=== PATIENT | female | born 1980 | race Caucasian/White ===

== ENCOUNTER 2019-09-15 03:56 | Emergency (ER) | payer OTHER ==
[~2019-09-15] VITALS: Ht 154 cm; Wt 69.0 kg
--- NOTE | 2019-09-15 04:15 | ED EENT ---
History of Present Illness General Chief Complaint: Dental Problems/Pain Stated Complaint: DENTAL PAIN Source: patient History of Present Illness Date Seen by Provider: Sep 15, 2019 Time Seen by Provider: 04:15 Initial Comments Patient is a 39 y/o female who comes to the ER today c/o dental pain. Patient states she has been followed this week by her dentist for pain in the right molar area after having had a dental procedure four days earlier. She has been seen twice and given IM rocephin and toradold that did help her pain symptoms. No more power medications at home although she is taking clindamycin. This was started at 150mg tid and increased to 300 mg tid. She comes to the ER this evening, tearful and in pain, stating the medications are not helping for pain. She has no dental f/u until at least Wednesday as the dentist's office is closed. No fever. Allergies and Home Medications Allergies Coded Allergies: amoxicillin (Verified Allergy, Unknown, 09/15/19) metoclopramide (Verified Allergy, Unknown, 09/15/19) Patient Home Medication List Home Medication List Reviewed: Yes Review of Systems Review of Systems Constitutional: no symptoms reported Eyes: No Symptoms Reported Ears: No Symptoms Reported Mouth: see HPI Throat: no symptoms reported Respiratory: no symptoms reported Cardiovascular: no symptoms reported : No All Other Systems Reviewed Negative Unless Noted: No Past Hqlolxy-Ceitng-Odazmh Hx Patient Social History Recent Foreign Travel: No Contact w/Someone Who Travel: No Physical Exam Vital Signs Vital Signs - First Documented 09/15/19 04:08 Temp 36.4 Pulse 87 Resp 16 B/P (MAP) 125/87 (100) Pulse Ox 96 O2 Delivery Room Air Height, Weight, BMI Height: '" Weight: lbs. oz. kg; BMI Method: General Appearance: WD/WN, no apparent distress Mouth/Throat: normal mouth inspection Neck: non-tender, full range of motion Cardiovascular: no edema Respiratory: no respiratory distress Neurologic/Psychiatric: alert, oriented x 3 Skin: normal color Progress/Results/Core Measures Results/Orders My Orders Orders - SOHAIL ESCAMILLA DO Ketorolac Injection (Toradol Injection) (09/15/19 04:30) Ceftriaxone For Im Use (Rocephin For Im (09/15/19 04:30) Lidocaine 1% Inj 20 Ml (Xylocaine 1% Inj (09/15/19 04:30) Vital Signs/I&O 09/15/19 04:08 Temp 36.4 Pulse 87 Resp 16 B/P (MAP) 125/87 (100) Pulse Ox 96 O2 Delivery Room Air Progress Progress Note : Time: 04:28 Progress Note Patient is seen and examined on arrival to her room. She c/o abscess and pain in the right mandibular molar area. Her physical exam is normal. I could not appreciate any gingival inflammation, swelling, redness in the area of concern. She is requesting a different antibiotic or an IV dose of antibiotics. Has previously been given IM rocephin and toradol and is also requesting this. Tonight, I could appreciate no indication to change her antibiotic therapy. I recommended she increase to the maximum dose of clindamycin and will give her some stronger pain medications to use at home until she can follow up with the dentist. She does not have a fever and is drinking liquid during the ED course. This evening, we will give her 60 mg toradol IM and 1 gm rocephin IM. She is discharged home with Rx for motrin and norco. Increase dose of clindamycin to 300 mg qid and follow up with dentist MOISES. Opiate precautions discussed and all of her questions are answered prior to discharge home. Departure Impression Primary Impression: Dental abscess Disposition: 01 HOME, SELF-CARE Condition: Improved Departure-Patient Inst. Referrals: PARI PAN APRN (PCP/Family) Primary Care Physician SOHAIL ESCAMILLA DO Sep 15, 2019 04:15
[2019-09-15] MEDS ORDERED: cefTRIAXone 1,000 MG/2.86 ml vial (IM ONLY) IM ONE (04:30)
[2019-09-15] MEDS ORDERED: LIDOCAINE 1% INJ 20 ML 20 ML VIAL INJ ONE (04:30)
[2019-09-15] MEDS ORDERED: KETOROLAC 60 MG/2 ML VIAL IM ONE (04:30)
[2019-09-15] MEDS ORDERED: IBUP-1780 PO (04:37)
[2019-09-15] MEDS ORDERED: HYDR-4226 PO (04:37)
[2019-09-15 04:38] VITALS: BP 125/87
== END 2019-09-15 04:40 | disposition home or self-care (01) ==
LOC: ER FS 04:05
DX: K04.7 Periapical abscess without sinus (principal); Z88.0 Allergy status to penicillin; Z88.8 Allergy status to other drugs, medicaments and biological substances
CPT/HCPCS: 96372; 99284

== ENCOUNTER → 2022-06-24 | Outpatient (CLI) | payer OTHER ==
[~2022-06-24] MED LIST: HYDR-4226 PO; IBUP-1780 PO
[2022-06-24 14:40] VITALS: BP 136/90
--- NOTE | 2022-06-24 14:50 | Cardiology Stress Test Report ---
Stress Test Report Date of Procedure/Referring: Date of Procedure: Jun 24, 2022 PCP Kiah Powers Aprn Admitting Physician Admitting Physician: Attending Physician: Kiah Powers Aprn Indications: Chest pain Baseline Heart Rate: 88 Baseline Blood Pressure: Blood Pressure Systolic: 136 Blood Pressure Diastolic: 90 Baseline EKG: Baseline EKG: NSR Summary/Conclusion: Summary: In summary, the patient started exercising with a baseline heart rate, blood pressure and EKG mentioned above Patient was able to exercise for a total of 9 minutes on Jaiden protocol, METs 10.5 Maximum heart rate 159 Maximum blood pressure 183/92 Stress EKG, Minimal nondiagnostic changes Recovery EKG , Return to baseline Conclusion: 1. Good exercise tolerance for a total of 9 minutes on Jaiden protocol, 10.5 METs, achieving 89 percent of maximum expected heart rate 2. Minimal nondiagnostic EKG changes with exercise returned to baseline during recovery 3. No arrhythmia was noted 4. Hypertensive response to exercise WESLY MAYS MD Jun 24, 2022 14:49
== END ==
LOC: CARD 14:00
PROVIDERS: ATTEND Nurse Practitioner Family
DX: R07.9 Chest pain, unspecified (principal)
CPT/HCPCS: 93017

== ENCOUNTER → 2022-10-13 | Outpatient (CLI) | payer OTHER | LOC: CARDFS 11:40 | PROVIDERS: ATTEND Nurse Practitioner Family | DX: R07.9 Chest pain, unspecified (principal) | CPT/HCPCS: 93306 ==